=== PATIENT | male | born 1995 | race American Indian/Alaskan Native ===

== ENCOUNTER 2017-07-23 05:18 | Emergency (ER) | payer SELFPAY ==
[2017-07-23 05:36] VITALS: BP 143/77
--- NOTE | 2017-07-23 06:08 | XRay Report ---
FINAL REPORT EXAM: XR HAND 3+V LT HISTORY: L hand injury; swelling COMPARISONS: None. FINDINGS: Four views left hand No bone lesion, periosteal reaction, or fracture. No deformity or gross malalignment. IMPRESSION: No fracture or gross malalignment in the left hand.
== END 2017-07-23 08:03 | disposition left against medical advice (07) ==
LOC: ED 05:18
DX: Z53.21 Procedure and treatment not carried out due to patient leaving prior to being seen by health care provider (principal)